=== PATIENT | male | born 1950 | race Caucasian/White ===

== ENCOUNTER 2016-10-12 19:55 | Inpatient (IN) | payer MEDICARE ==
[~2016-10-12] VITALS: Ht 182.9 cm; Wt 104.1 kg
[~2016-10-12 19:55] MED LIST: AMLO10TA2 PO; AMLO1CAP15 PO; DOXA2TAB9 PO; LOSA50TA6 PO; OMEP-110 PO
[2016-10-12] MEDS ORDERED: SODIUM CHLORIDE FLUSH 10ML SYR IVF ONE ×2 (21:00→21:30)
[2016-10-12] MEDS ORDERED: SODIUM CHLORIDE 0.9% 1,000ML IVBOLUS ONE ×3 (21:00→23:00)
[2016-10-12 21:22] LABS: HEMATOCRIT 48.3 % (39.2-51.8); HEMOGLOBIN 16.1 g/dL (13.7-18.0); WHITE BLOOD COUNT 10.3 x10^3/uL (3.4-10)
[2016-10-12 21:31] LABS: ASPARTATE AMINO TRANSFERASE 418 U/L (15-37); BLOOD UREA NITROGEN 64 mg/dL (7-18)
[2016-10-12] MEDS ORDERED: SODIUM CHLORIDE 0.9% 1,000 ML IV ONE ×2 (22:31→22:40)
[2016-10-13] MEDS ORDERED: LABETALOL 5MG/ML, 20ML IVPush PRN
[2016-10-13] MEDS ORDERED: TEMAZEPAM 15 MG CAPSULE PO PRN
[2016-10-13] MEDS ORDERED: ONDANSETRON ODT 4 MG PO PRN
[2016-10-13] MEDS ORDERED: ACETAMINOPHEN 325 MG TABLET PO PRN
[2016-10-13] MEDS: SODIUM CHLORIDE 0.9% 1,000 ML IV SCH ×4 (00:51→22:53)
[2016-10-13] MEDS: OMEPRAZOLE 20 MG CAPSULE.DR PO SCH ×3 (00:52→21:00)
[2016-10-13] MEDS: HEPARIN 5,000 UNITS/ML, 1ML SQ SCH ×3 (00:52→15:57)
[2016-10-13 00:57] VITALS: BP 130/74
[2016-10-13 05:45] LABS: BLOOD UREA NITROGEN 47 mg/dL (7-18)
[2016-10-13 06:01] LABS: HEMATOCRIT 40.8 % (39.2-51.8); HEMOGLOBIN 13.7 g/dL (13.7-18.0); WHITE BLOOD COUNT 7.5 x10^3/uL (3.4-10)
[2016-10-13 07:49] VITALS: BP 125/77
[2016-10-13 14:56] VITALS: BP 138/70
[2016-10-13 20:35] VITALS: BP 133/75
[2016-10-14] MEDS: SODIUM CHLORIDE 0.9% 1,000 ML IV SCH ×2 (05:03→15:00)
[2016-10-14] MEDS: HEPARIN 5,000 UNITS/ML, 1ML SQ SCH ×3 (05:03→19:42)
[2016-10-14 05:04] VITALS: BP 138/80
[2016-10-14 05:55] LABS: BLOOD UREA NITROGEN 23 mg/dL (7-18)
[2016-10-14 05:58] LABS: ASPARTATE AMINO TRANSFERASE 286 U/L (15-37)
[2016-10-14 08:00] VITALS: BP 162/83
[2016-10-14] MEDS: OMEPRAZOLE 20 MG CAPSULE.DR PO SCH ×2 (09:19→19:40)
[2016-10-14] MEDS: AMLODIPINE 5 MG TABLET PO SCH (11:24)
[2016-10-14] MEDS: DOXAZOSIN 2MG TABLET PO SCH (11:25)
[2016-10-14 11:33] VITALS: BP 170/90
[2016-10-14 14:00] VITALS: BP 157/87
[2016-10-14 19:08] VITALS: BP 164/71
[2016-10-14] MEDS ORDERED: SODIUM CHLORIDE 0.9% 1,000 ML IV SCH (23:42)
[2016-10-15 00:34] VITALS: BP 154/81
[2016-10-15] MEDS: HEPARIN 5,000 UNITS/ML, 1ML SQ SCH (03:29)
[2016-10-15] MEDS: SODIUM CHLORIDE 0.9% 1,000 ML IV SCH (04:12)
[2016-10-15 06:43] LABS: ASPARTATE AMINO TRANSFERASE 268 U/L (15-37); BLOOD UREA NITROGEN 12 mg/dL (7-18)
[2016-10-15 08:31] VITALS: BP 154/86
[2016-10-15] MEDS: OMEPRAZOLE 20 MG CAPSULE.DR PO SCH (09:01)
[2016-10-15] MEDS: DOXAZOSIN 2MG TABLET PO SCH (09:01)
[2016-10-15] MEDS: AMLODIPINE 5 MG TABLET PO SCH (09:01)
== END 2016-10-15 10:45 | disposition home or self-care (01) | DRG 564 ==
LOC: ED 21:15 → EDIP 22:42 → 3NE 10-13 00:16 → DCLOUNGE 10-15 10:17
PROVIDERS: ADMIT Internal Medicine; ATTEND Internal Medicine
DX: T79.6XXA Traumatic ischemia of muscle, initial encounter (principal); N17.0 Acute kidney failure with tubular necrosis; G62.9 Polyneuropathy, unspecified; D72.829 Elevated white blood cell count, unspecified; I12.9 Hypertensive chronic kidney disease with stage 1 through stage 4 chronic kidney disease, or unspecified chronic kidney disease; E86.0 Dehydration; F43.9 Reaction to severe stress, unspecified; K21.9 Gastro-esophageal reflux disease without esophagitis; R79.89 Other specified abnormal findings of blood chemistry; N18.2 Chronic kidney disease, stage 2 (mild); I25.2 Old myocardial infarction; Z79.899 Other long term (current) drug therapy; Z82.49 Family history of ischemic heart disease and other diseases of the circulatory system; Z92.3 Personal history of irradiation; Z90.89 Acquired absence of other organs
CPT/HCPCS: 36415; 80048; 80053; 81001; 82550; 83735; 84100; 85025; 96360; 96361; J1644; J7030

== ENCOUNTER → 2018-03-08 | Outpatient (CLI) | payer MEDICARE ==
[~2018-03-08] MED LIST changes: -AMLO10TA2 PO; +AMLO10TA6 PO; -LOSA50TA6 PO; +LOSA50TA7 PO
== END | disposition home or self-care (01) ==
LOC: CVU 14:31
PROVIDERS: ATTEND Internal Medicine Cardiovascular Disease
DX: I65.21 Occlusion and stenosis of right carotid artery (principal); I45.10 Unspecified right bundle-branch block; I10 Essential (primary) hypertension
CPT/HCPCS: 0399T; 93306; 93880